=== PATIENT | female | born 1940 | race Caucasian/White ===

== ENCOUNTER 2017-10-31 21:05 | Inpatient (IN) | payer MEDICARE, OTHER ==
[~2017-10-31] VITALS: Ht 157.5 cm; Wt 59.9 kg
--- NOTE | 2017-10-31 21:13 | NUR ---
GUERDA MCLEOD at bedside for MSE.
--- NOTE | 2017-10-31 21:20 | NUR ---
Pt arrives to ER via wheelchair accompanied by daughter. Per daughter, pt took methotrexate and tramadol at 1700 and at 1730, pt had slurred speech. Pt is AAOX3, ambulatory. At this time, speech is clear. Able to speak in complete sentences. Responsive to verbal and tactile stimuli. Able to follow directions. VSS. No acute distress noted.
[2017-10-31 21:40] LABS: BASOPHILS # (AUTO) 0.1 K/uL (0.0-8.0); BASOPHILS % (AUTO) 0.6 % (0.0-2.0); EOSINOPHILS % (AUTO) 0.5 % (0.0-7.0); HEMATOCRIT 38.2 % (31.2-41.9); HEMOGLOBIN 12.8 g/dL (10.9-14.3); LYMPHOCYTES # (AUTO) 1.3 K/uL (20.0-40.0); LYMPHOCYTES % (AUTO) 15.7 % (20.5-51.5); MEAN CORPUSCULAR HEMOGLOBIN 36.2 uug (24.7-32.8); MEAN CORPUSCULAR HGB CONC 34 g/dL (32.3-35.6); MEAN CORPUSCULAR VOLUME 107.8 fL (75.5-95.3); MONOCYTES # (AUTO) 0.9 K/uL (2.0-10.0); MONOCYTES % (AUTO) 10.8 % (0.0-11.0); NEUTROPHILS # (AUTO) 5.9 K/uL (1.8-8.9); NEUTROPHILS % (AUTO) 72.4 % (38.5-71.5); PLATELET COUNT (AUTO) 264 K/uL (179-408); RED BLOOD CELL COUNT(AUTO) 3.54 MIL/uL (3.63-4.92); WHITE BLOOD COUNT (AUTO) 8.2 K/uL (3.8-11.8)
--- NOTE | 2017-10-31 21:41 | NUR ---
Pt went down to radiology dept for CT scan.
[2017-10-31] MEDS ORDERED: OLAN5TAB30 PO ×2 (21:56)
[2017-10-31] MEDS ORDERED: SERT100T12 PO (21:56)
[2017-10-31] MEDS ORDERED: DICLOFEN GEL TP (21:56)
[2017-10-31] MEDS ORDERED: PRED1TAB PO (21:56)
[2017-10-31] MEDS ORDERED: LEVO50TA8 PO (21:56)
[2017-10-31] MEDS ORDERED: METH2.5T PO (21:56)
[2017-10-31] MEDS ORDERED: KETO5DRO72 OP (21:56)
[2017-10-31] MEDS ORDERED: ATOR10TA PO (21:56)
[2017-10-31] MEDS ORDERED: RIVA1PAT3 TD (21:56)
[2017-10-31] MEDS ORDERED: LORA10TA7 PO (21:56)
[2017-10-31] MEDS ORDERED: TRAM50TA2 PO (21:56)
[2017-10-31] MEDS ORDERED: MELO-105 PO (21:56)
[2017-10-31] MEDS ORDERED: METH500T PO (21:56)
[2017-10-31] MEDS ORDERED: OLAN2.5T3 PO (21:56)
[2017-10-31 21:59] LABS: ALANINE AMINOTRANSFERASE 26 U/L (14-59); ALKALINE PHOSPHATASE 30 U/L (50-136); ASPARTATE AMINOTRANSFERASE 25 U/L (15-37); BILIRUBIN,DIRECT 0.2 mg/dL (0.0-0.2); BILIRUBIN,TOTAL 0.8 mg/dL (0.2-1.0); CARBON DIOXIDE 28 mmol/L (21-32); CHLORIDE 102 mmol/L (98-107); CREATININE 0.8 mg/dL (0.6-1.3); GLUCOSE 126 mg/dL (74-106); POTASSIUM 3.5 mmol/L (3.5-5.1); TOTAL PROTEIN, SERUM 6.2 g/dL (6.4-8.2); UREA NITROGEN, BLOOD 11 mg/dL (7-18)
[2017-10-31 22:06] LABS: THYROID STIMULATING HORMONE 1.567 mIU/mL (0.358-3.740)
--- NOTE | 2017-10-31 22:11 | NUR ---
Pt went to bathroom, collected urine sample and sent to lab.
[2017-10-31 22:28] LABS: *BILIRUBIN,URIN NEGATIVE (NEGATIVE); *BLOOD, URINE Trace-intact (NEGATIVE); *CLARITY,URINE SLIGHTLY CLOUDY (CLEAR); *KETONES,URINE NEGATIVE (NEGATIVE); *PROTEIN,URINE NEGATIVE (NEGATIVE); *UROBILINOGEN,URINE 0.2 E.U./dl (NORMAL); LEUKOCYTE ESTERASE ,URINE 1+ (NEGATIVE); NITRITE, URINE NEGATIVE (NEGATIVE); PH,URINE 6.5 (5.0-8.0); UGLUCOSE NEGATIVE (NEGATIVE)
--- NOTE | 2017-10-31 22:30 | NUR ---
IN FROM ER VIA GURNEY, 77 YEAR OLD FEMALE ADMITTED TO TELEMETRY WITH DX OF ALTERED MENTAL STATUS. AAOX2, NO SOB DENIES ANY CHEST PAIN. TELE MONITOR APPLIED SHOWS SINUS RHYTHM WITH HR OF 64. DAUGHTER AT BESIDE. IV SITE ON RAC, PATENT AND INTACT. ROUTINE ADMISSION DONE. PLAN OF CARE INITIATED. SAFETY MEASURES INITIATED. CALL KIDD WITHIN REACH. Addendum: 11/01/17 at 0132 by HERLINDA PAREDES RN PT ARRIVED AT UNIT AT 2330H
[2017-10-31 22:37] LABS: *COLOR,URINE YELLOW (YELLOW)
[2017-10-31 22:38] LABS: BACTERIA,URINE FEW /HPF (NONE SEEN); SQUAMOUS EPITHELIAL CELL,UR FEW /HPF (NONE SEEN)
--- NOTE | 2017-10-31 22:38 | NUR ---
Lab called to notify that urine color is yellow not green. aware.
[2017-10-31] MEDS ORDERED: ASPIRIN 325 MG TABLET PO ONE (23:00)
[2017-10-31] MEDS ORDERED: CEPHALEXIN MONOHYDRATE 500 MG CAPSULE PO ONE (23:00)
[2017-10-31] MEDS ORDERED: PANTOPRAZOLE SODIUM 40 MG TABLET.DR PO ONE ×2 (23:00→23:03)
[2017-10-31] MEDS ORDERED: CEPHALEXIN MONOHYDRATE 500 MG CAPSULE ONE (23:03)
[2017-10-31] MEDS ORDERED: ASPIRIN 325 MG TABLET ONE (23:03)
--- NOTE | 2017-10-31 23:19 | NUR ---
Pt. admitted to Telemetry , under care of Jermaine Krueger NP. Diagnosis: Altered Mental Status. Belongs List completed. Report given to Keke COWAN.
[2017-10-31] MEDS ORDERED: METHOCARBAMOL 500 MG TABLET PO PRN (23:45)
[2017-10-31] MEDS ORDERED: LORATADINE 10 MG TABLET PO PRN (23:45)
[2017-10-31] MEDS ORDERED: TRAMADOL HCL 50 MG TABLET PO PRN (23:45)
[2017-11-01] VITALS: BP 154/59
[2017-11-01] MEDS ORDERED: ONDANSETRON 4 MG/2 ML VIAL IV PRN
[2017-11-01] MEDS ORDERED: HYDROCODONE/APAP 5-325MG TABLET PO PRN
[2017-11-01] MEDS ORDERED: ZOLPIDEM 5 MG TABLET PO PRN
[2017-11-01] MEDS ORDERED: MAGNESIUM HYDROXIDE 30 ML LIQUID UDC PO PRN
[2017-11-01] MEDS ORDERED: ACETAMINOPHEN 325 MG TABLET PO PRN
[2017-11-01] MEDS: IV NS 1000 ML 1,000 ML IV PRN ×2 (00:21→14:33)
[2017-11-01 04:00] VITALS: BP 144/106
[2017-11-01 06:09] LABS: BASOPHILS % (AUTO) 0.4 % (0.0-2.0); EOSINOPHILS # (AUTO) 0.1 K/uL (0.0-0.7); EOSINOPHILS % (AUTO) 1.6 % (0.0-7.0); HEMATOCRIT 35.5 % (31.2-41.9); HEMOGLOBIN 11.9 g/dL (10.9-14.3); LYMPHOCYTES # (AUTO) 1.6 K/uL (20.0-40.0); LYMPHOCYTES % (AUTO) 22.8 % (20.5-51.5); MEAN CORPUSCULAR HEMOGLOBIN 36.8 uug (24.7-32.8); MEAN CORPUSCULAR HGB CONC 34 g/dL (32.3-35.6); MEAN CORPUSCULAR VOLUME 109.8 fL (75.5-95.3); MONOCYTES % (AUTO) 13.9 % (0.0-11.0); NEUTROPHILS # (AUTO) 4.4 K/uL (1.8-8.9); NEUTROPHILS % (AUTO) 61.3 % (38.5-71.5); PLATELET COUNT (AUTO) 232 K/uL (179-408); RED BLOOD CELL COUNT(AUTO) 3.23 MIL/uL (3.63-4.92); WHITE BLOOD COUNT (AUTO) 7.2 K/uL (3.8-11.8)
[2017-11-01] MEDS: LEVOTHYROXINE SODIUM 50 MCG TABLET PO SCH (06:32)
[2017-11-01 06:34] LABS: ALANINE AMINOTRANSFERASE 23 U/L (14-59); ALKALINE PHOSPHATASE 35 U/L (50-136); ASPARTATE AMINOTRANSFERASE 24 U/L (15-37); BILIRUBIN,TOTAL 0.7 mg/dL (0.2-1.0); CARBON DIOXIDE 30 mmol/L (21-32); CHLORIDE 104 mmol/L (98-107); CHOLESTEROL 147 mg/dL (<200); CREATININE 0.8 mg/dL (0.6-1.3); GLUCOSE 96 mg/dL (74-106); HDL CHOLESTEROL 75 mg/dL (40-60); PHOSPHOROUS 3.8 mg/dL (2.5-4.9); POTASSIUM 3.4 mmol/L (3.5-5.1); THYROID STIMULATING HORMONE 2.355 mIU/mL (0.358-3.740); TRIGLYCERIDES 51 MG/DL (30-150); UREA NITROGEN, BLOOD 10 mg/dL (7-18)
--- NOTE | 2017-11-01 06:37 | NUR ---
PT RESTING COMFORTABLY ON BED, NO SOB, DENIES ANY CHEST PAIN. IV SITE ON RAC PATENT AND INTACT. ALL NEEDS MET AND ATTENDED. SAFE ENVIRONMENT MAINTAINED AT ALL TIMES, CALL KIDD WITHIN REACH
--- NOTE | 2017-11-01 07:00 | NUR ---
Received patient in bed, awake, alert and oriented x1, in no acute distress. Denies chest pain or SOB. Speech is clear. IV site on RAC intact, IV fluids NS running at 75cc/hr. Will continue to monitor Addendum: 11/01/17 at 0839 by PATY PETERSON RN NSR on monitor, with HR of 60
[2017-11-01] MEDS: predniSONE 1 MG TABLET PO SCH (08:55)
[2017-11-01] MEDS: MELOXICAM 7.5 MG TABLET PO SCH (08:55)
[2017-11-01] MEDS: OLANZAPINE 2.5 MG TABLET PO SCH ×2 (08:55→17:08)
[2017-11-01] MEDS: SERTRALINE HCL 100 MG TABLET PO SCH (08:55)
[2017-11-01] MEDS ORDERED: RIVASTIGMINE 9.5 MG/ 24 HR 9.5 MG PATCH TD SCH (09:00)
[2017-11-01] MEDS ORDERED: OLANZAPINE 5 MG TABLET PO SCH ×2 (09:00→21:00)
[2017-11-01 11:37] VITALS: BP 145/48
[2017-11-01] MEDS ORDERED: POTASSIUM CHLORIDE 10 MEQ TAB.PRT.SR PO ONE (12:45)
[2017-11-01] MEDS ORDERED: POTASSIUM CHLORIDE 20 MEQ TAB.PRT.SR PO ONE (12:45)
[2017-11-01] MEDS ORDERED: POTASSIUM CHLORIDE 20 MEQ POWDER PACKET PO ONE (13:00)
[2017-11-01] MEDS: CEFTRIAXONE 1 G in IV DEXTROSE 5% 50 ML IV SCH (13:51)
[2017-11-01] MEDS ORDERED: TEMAZEPAM 7.5 MG CAPSULE PO PRN (14:00)
[2017-11-01 16:28] VITALS: BP 140/62
--- NOTE | 2017-11-01 18:18 | NUR ---
End of shift note: Patient is alert and oriented x1, confused, in no acute distress. No chest pain or SOB noted. Continues on IV fluids NS at 75cc/hr. No A/R noted from the IV atb given this afternoon. Continue to reorient patient as needed. remained afebrile. Telemetry was discontinued. No acute change of condition noted. All needs attended and met. Will continue to monitor
--- NOTE | 2017-11-01 19:56 | NUR ---
RECEIVED SHIFT REPORT FROM DAY SHIFT RN. PT IN BED, DENIES PAIN, C/P, SOB, N/V. BED IN LOW AND LOCKED POSITION WITH BILATERAL UPPER SIDERAILS UP. CALL LIGHT WITHIN REACH. IVF INFUSING AT 75 CC/HR VIA 20 G L AC. WILL CONTINUE TO MONITOR.
[2017-11-01 20:00] VITALS: BP 145/72
[2017-11-01] MEDS ORDERED: ATORVASTATIN 10 MG TABLET PO SCH (21:00)
--- NOTE | 2017-11-01 22:23 | NUR ---
PT IS CONFUSED. REORIENTATION PROVIDED AND ASSISTED TO BED. PT DENIES PAIN, C/P, SOB, N/V. WILL MONITOR PT FOR INSOMNIA AND CONTINUE REORIENTATION.
--- NOTE | 2017-11-01 23:18 | NUR ---
PT WANDERING AROUND UNIT FLOOR. APPEARS TO BE A BIT UNSTEADY ON HER FEET. PT REDIRECTED TO ROOM. C/O GENERALIZED PAIN, REQUESTS PAIN MEDICINE. PT UNABLE TO FALL ASLEEP, OFFERED SLEEPING MEDICINE. PT ACCEPTED OFFER FOR SLEEPING MEDICINE, ADMINISTERED. PT RESTING IN BED AT THIS TIME. REQUIRES FREQUENT VISUAL MONITORING DUE TO WANDERING AND UNSTEADY GAIT. WILL CONTINUE TO MONITOR.
--- NOTE | 2017-11-02 02:49 | NUR ---
PT IS SLEEPING COMFORTABLY IN BED POST TEMAZEPAM ADMIN. PT IS ASLEEP, BUT EASILY AROUSABLE. WILL CONTINUE TO MONITOR AND PROVIDE SAFETY PRECAUTIONS.
[2017-11-02 04:00] VITALS: BP 146/73
[2017-11-02] MEDS: LEVOTHYROXINE SODIUM 50 MCG TABLET PO SCH (05:37)
[2017-11-02 06:47] LABS: CARBON DIOXIDE 28 mmol/L (21-32); CHLORIDE 106 mmol/L (98-107); CREATININE 0.7 mg/dL (0.6-1.3); GLUCOSE 81 mg/dL (74-106); POTASSIUM 4.2 mmol/L (3.5-5.1); UREA NITROGEN, BLOOD 10 mg/dL (7-18)
--- NOTE | 2017-11-02 07:45 | NUR ---
AWAKE FORGETFUL NO PAIN OR SOB ON FALL PRECAUTION BED ALARM ON AND CALL LIGHT IN REACH IVF INFUSION WELL LAC
[2017-11-02] MEDS: SERTRALINE HCL 100 MG TABLET PO SCH (08:26)
[2017-11-02] MEDS: predniSONE 1 MG TABLET PO SCH (08:26)
[2017-11-02] MEDS: MELOXICAM 7.5 MG TABLET PO SCH (08:26)
[2017-11-02] MEDS: OLANZAPINE 2.5 MG TABLET PO SCH ×2 (08:27→16:24)
--- NOTE | 2017-11-02 10:00 | NUR ---
OOB AMB WITH PT DOING WELL FAMILY AT BEDSIDE PO FLD RAYA MOD AMT NO PAIN OR SOB
[2017-11-02] MEDS ORDERED: RIVASTIGMINE 4.6 MG PATCH TD SCH (10:45)
[2017-11-02 11:40] VITALS: BP 104/52
[2017-11-02] MEDS: CEFTRIAXONE 1 G in IV DEXTROSE 5% 50 ML IV SCH (12:59)
--- NOTE | 2017-11-02 14:00 | NUR ---
Jaky TOTH RAILCAR BRAKE OPERATOR SE PATIENT AND ORDER OK TO DISCHARGE TODAY TO ARU WITH ORDER FAMILY DAUGHTER WAS INFORM AND REHAB UNIT LINE PREP COOK CAME TO EVAL STATE OK TO ACCEPT PATIENT ,WAITING FOR BED AVAILABLE THIS EVENING
[2017-11-02 15:30] VITALS: BP 98/49
--- NOTE | 2017-11-02 17:00 | NUR ---
REPORT GIVEN TO NURSE MEIER VIA TEL PATIENT EAT DINNER 60% AT THIS TIME AND DAUGHTER WAS CALL TO INFORM OF PT WILL GO TO ROOM 108 AT [facility]
--- NOTE | 2017-11-02 17:30 | NUR ---
D/C TO ARU WITH HER BELONGING CONDITION STABLE NO PAIN
[2017-11-02] MEDS ORDERED: CEPH-570 PO (18:23)
[2017-11-03] MEDS ORDERED: RIVASTIGMINE 9.5 MG/ 24 HR 9.5 MG PATCH TD SCH (09:00)
== END 2017-11-02 17:30 | DRG 689 ==
LOC: ER 21:07 → TELE 23:20 → MED 11-01 12:40
PROVIDERS: ADMIT Nurse Practitioner Acute Care; ATTEND Nurse Practitioner Acute Care
DX: N39.0 Urinary tract infection, site not specified (principal); G92 Toxic encephalopathy; E44.0 Moderate protein-calorie malnutrition; B96.89 Other specified bacterial agents as the cause of diseases classified elsewhere; Z68.24 Body mass index [BMI] 24.0-24.9, adult; G30.9 Alzheimer's disease, unspecified; F02.80 Dementia in other diseases classified elsewhere, unspecified severity, without behavioral disturbance, psychotic disturbance, mood disturbance, and anxiety; I49.3 Ventricular premature depolarization; E87.6 Hypokalemia; E78.5 Hyperlipidemia, unspecified; M06.9 Rheumatoid arthritis, unspecified; G89.4 Chronic pain syndrome; Z66 Do not resuscitate; M85.80 Other specified disorders of bone density and structure, unspecified site; Z79.899 Other long term (current) drug therapy; I65.29 Occlusion and stenosis of unspecified carotid artery; E55.9 Vitamin D deficiency, unspecified; E03.9 Hypothyroidism, unspecified; M19.90 Unspecified osteoarthritis, unspecified site; E16.2 Hypoglycemia, unspecified
CPT/HCPCS: 36415; 70030-TC; 70450; 71045; 83605; 83735; 84100; 84443; 85025; 85730; 87040; 87086; 93005; 93307; 93880; 97116; 97530; A4663; J0696; J7030; J7060; J7512

== ENCOUNTER 2017-11-02 17:44 | Inpatient (IN) | payer MEDICARE, OTHER ==
[~2017-11-02] VITALS: Ht 157.5 cm; Wt 59.9 kg
[~2017-11-02 17:44] MED LIST: ATOR10TA PO; DICLOFEN GEL TP; KETO5DRO72 OP; LEVO50TA8 PO; LORA10TA7 PO; MELO-105 PO; METH2.5T PO; METH500T PO; OLAN2.5T3 PO; OLAN5TAB30 PO; PRED1TAB PO; RIVA1PAT3 TD; SERT100T12 PO; TRAM50TA2 PO
[2017-11-02 17:50] VITALS: BP 134/55
[2017-11-02] MEDS ORDERED: Z GUARD REMEDY PASTE 57 GM TUBE TOP PRN (18:15)
[2017-11-02] MEDS ORDERED: CEPH-570 PO (18:23)
--- NOTE | 2017-11-02 18:29 | NUR ---
NURSE NOTES: Admitted a 77 year old female patient from medical surgical floor in [facility]. Transported by staff via wheelchair. No SOB or distress noted. Patient was oriented to the unit, room and use of call light as well as her telephone. Called Dr. Mckinley and informed with new orders, noted and carried out. Admission questions were provided by the patient, hospital paperwork provided by Med Surg as well as the reporting RN. Medication reconciliation reviewed. called Dr. Feng Manrique and informed, awaiting for MD to reconcile the medications. Safety precautions initiated. Call light and telephone within reach. Will continue to monitor. Will endorse accordingly to incoming shift for continuity of care.
--- NOTE | 2017-11-02 18:48 | NUR ---
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
[2017-11-02 20:00] VITALS: BP_SYST 122; BP_SYST 159; BP_DIAS 72
--- NOTE | 2017-11-02 20:00 | NUR ---
Received patient laying comfortably in bed. No acute distress noted. A/O x 1. On room air. Skin assessment done. Skin intact. Safety initiated. Call light within reach. Will continue to monitor.
[2017-11-02] MEDS ORDERED: METHOCARBAMOL 500 MG TABLET PO PRN (23:45)
[2017-11-02] MEDS ORDERED: TRAMADOL HCL 50 MG TABLET PO PRN (23:45)
--- NOTE | 2017-11-03 05:35 | NUR ---
Patient slept t/o shift. No acute distress noted. Remains A/O x 1. Vital signs stable. Room kept clutter free. Bed in low and locked position. All meds given as ordered. All needs met. Safety and comfort measures maintained t/o shift.
[2017-11-03] MEDS: MELOXICAM 7.5 MG TABLET PO SCH (07:49)
[2017-11-03] MEDS: predniSONE 1 MG TABLET PO SCH (07:49)
[2017-11-03] MEDS: OLANZAPINE 2.5 MG TABLET PO SCH ×2 (07:50→18:08)
[2017-11-03] MEDS: SERTRALINE HCL 100 MG TABLET PO SCH (07:50)
[2017-11-03] MEDS ORDERED: LEVOTHYROXINE SODIUM 50 MCG TABLET PO SCH (09:00)
[2017-11-03] MEDS ORDERED: CEPHALEXIN MONOHYDRATE 500 MG CAPSULE PO SCH (09:00)
[2017-11-03] MEDS ORDERED: RIVASTIGMINE 9.5 MG/ 24 HR 9.5 MG PATCH TD SCH ×2 (09:00)
[2017-11-03] MEDS ORDERED: LORATADINE 10 MG TABLET PO SCH ×2 (09:00)
[2017-11-03] MEDS ORDERED: METHOTREXATE SODIUM 2.5 MG TABLET PO SCH (09:00)
[2017-11-03] MEDS ORDERED: OLANZAPINE 5 MG TABLET PO SCH ×2 (09:00→21:00)
[2017-11-03] MEDS: RIVASTIGMINE 4.6 MG PATCH TD SCH (14:17)
[2017-11-03 15:28] VITALS: BP 164/72
--- NOTE | 2017-11-03 19:40 | NUR ---
Received pt in bed, appearing to be asleep but easily arousable to verbal stimuli and light touch. No acute distress noted. Verbally responsive and able to make needs known. Denies pain or discomfort at this time. All safety measures and fall precautions maintained. Call light and all personal belongings within reach. Will continue to monitor.
[2017-11-03 20:15] VITALS: BP 116/56
[2017-11-03] MEDS: ATORVASTATIN 10 MG TABLET PO SCH (21:15)
[2017-11-03] MEDS: CEPHALEXIN MONOHYDRATE 500 MG CAPSULE PO SCH (21:15)
[2017-11-04] MEDS: LEVOTHYROXINE SODIUM 50 MCG TABLET PO SCH (06:34)
[2017-11-04] MEDS: CEPHALEXIN MONOHYDRATE 500 MG CAPSULE PO SCH ×2 (09:20→20:37)
[2017-11-04] MEDS: SERTRALINE HCL 100 MG TABLET PO SCH (09:20)
[2017-11-04] MEDS: OLANZAPINE 2.5 MG TABLET PO SCH ×2 (09:20→16:26)
[2017-11-04] MEDS: MELOXICAM 7.5 MG TABLET PO SCH (09:20)
[2017-11-04] MEDS: predniSONE 1 MG TABLET PO SCH (09:20)
[2017-11-04 09:27] VITALS: BP 128/72
[2017-11-04] MEDS: RIVASTIGMINE 4.6 MG PATCH TD SCH (09:29)
--- NOTE | 2017-11-04 13:35 | NUR ---
INTERDISCIPLINARY TEAM CONFERENCE
[2017-11-04 16:03] VITALS: BP 119/72
--- NOTE | 2017-11-04 17:41 | NUR ---
pt continues to be stable throughout the day. no behavioral changes but pt continues to show confusion. will endorse to casino shift manager nurse.
--- NOTE | 2017-11-04 20:05 | NUR ---
Patient received in bed, AAO x2, forgetful, able to make needs known.Her private caregiver was at the bedside. No sign of distress or SOB was noted. On room air with O2 sat 94%. Pain assessed, no sign of pain. Safety measures maintained. Bed alarm and brake on, side rails up x2. Call light and personal belongings within reach. Continue to monitor.
[2017-11-04 20:07] VITALS: BP 101/50
[2017-11-04] MEDS: CETIRIZINE HCL 10 MG TABLET PO SCH (20:37)
[2017-11-04] MEDS: ATORVASTATIN 10 MG TABLET PO SCH (20:37)
[2017-11-05 05:00] VITALS: BP 137/68
--- NOTE | 2017-11-05 05:23 | NUR ---
End of the shift note Patient remained stable throughout the shift. Had good sleep throughout the night. No acute changes noted. Kept patient clean, dry and comfortable. Assessed for pain, no complain of pain. No sign of acute distress or SOB was noted. Medication was given as ordered. Monitored vital signs. Safety precautions observed. Hourly rounding done, call light and telephone within reach at all times, bilateral half side rails up and bed brake son for safety. Will endorse accordingly to incoming shift for continuity of care.
[2017-11-05] MEDS: LEVOTHYROXINE SODIUM 50 MCG TABLET PO SCH (06:22)
[2017-11-05] MEDS: OLANZAPINE 2.5 MG TABLET PO SCH ×2 (07:56→17:26)
[2017-11-05] MEDS: predniSONE 1 MG TABLET PO SCH (07:56)
[2017-11-05] MEDS: MELOXICAM 7.5 MG TABLET PO SCH (07:56)
[2017-11-05] MEDS: SERTRALINE HCL 100 MG TABLET PO SCH (07:56)
[2017-11-05 08:00] VITALS: BP 113/62
[2017-11-05] MEDS: RIVASTIGMINE 4.6 MG PATCH TD SCH (08:00)
[2017-11-05] MEDS: CEPHALEXIN MONOHYDRATE 500 MG CAPSULE PO SCH ×2 (08:00→21:05)
[2017-11-05] MEDS ORDERED: METHOTREXATE SODIUM 2.5 MG TABLET PO SCH (09:00)
--- NOTE | 2017-11-05 09:48 | NUR ---
Received patient up with occupational therapy, tolerating well. Able to make needs know. Alert x1-2. With minimal tolerable pain over lower back, refuses pain medications at this time.
[2017-11-05 16:03] VITALS: BP 113/56
--- NOTE | 2017-11-05 18:52 | NUR ---
Was stable throughout the shift. Compliant with medications and treatment. No complaints of pain.
[2017-11-05 19:30] VITALS: BP 115/61
[2017-11-05] MEDS: CETIRIZINE HCL 10 MG TABLET PO SCH (21:05)
[2017-11-05] MEDS: ATORVASTATIN 10 MG TABLET PO SCH (21:05)
[2017-11-06 04:00] VITALS: BP 134/63
--- NOTE | 2017-11-06 05:13 | NUR ---
Pt seen on rounding. AAO x2. No acute distress noted. No c/o pain or discomfort. At 0430, pt's HR is consistent to be around 54, asymptomatic, other VS WNL. Monitoring closely. Pt currently sleeping at this time. All meds given as ordered last night. All needs attended to promptly. Safety measures maintained. Call light and personal belongings within reach. Will continue to monitor.
[2017-11-06] MEDS: LEVOTHYROXINE SODIUM 50 MCG TABLET PO SCH (06:26)
[2017-11-06 08:58] VITALS: BP 115/55
[2017-11-06] MEDS: OLANZAPINE 2.5 MG TABLET PO SCH ×2 (08:59→17:18)
[2017-11-06] MEDS: MELOXICAM 7.5 MG TABLET PO SCH (08:59)
[2017-11-06] MEDS: CEPHALEXIN MONOHYDRATE 500 MG CAPSULE PO SCH ×2 (08:59→20:46)
[2017-11-06] MEDS: predniSONE 1 MG TABLET PO SCH (08:59)
[2017-11-06] MEDS: SERTRALINE HCL 100 MG TABLET PO SCH (08:59)
[2017-11-06] MEDS: RIVASTIGMINE 4.6 MG PATCH TD SCH (09:00)
[2017-11-06 15:50] VITALS: BP 124/57
--- NOTE | 2017-11-06 17:48 | NUR ---
Daily Nursing Note: Patient was not in distress all throughout the shift, vital signs taken and recorded accordingly, within normal limits and denies any form of discomfort and pain. Patient continues to show compliance with her overall care. No other complaints at this time. Addendum: 11/06/17 at 1817 by MANNY RUIZ JR., RN RN Dr. Miguel Angel Quintanilla made rounds to the unit and was made aware of patients bradycardia, no orders at this time.
[2017-11-06 19:50] VITALS: BP 120/45
[2017-11-06] MEDS: CETIRIZINE HCL 10 MG TABLET PO SCH (20:46)
[2017-11-06] MEDS: ATORVASTATIN 10 MG TABLET PO SCH (20:46)
--- NOTE | 2017-11-06 21:50 | NUR ---
Received pt resting in bed. AAO x2. No acute distress noted. No c/o pain or discomfort. Pt took meds as ordered. Episode of confusion noted, pt stated that she wants to go to the bathroom but forgot where it is and that she does not know where she is. Reoriented pt to the unit and equipment. Safety measures maintained. Call light and personal belongings within reach. Will continue to monitor.
[2017-11-07 04:30] VITALS: BP 104/42
[2017-11-07] MEDS: LEVOTHYROXINE SODIUM 50 MCG TABLET PO SCH (06:22)
--- NOTE | 2017-11-07 08:00 | NUR ---
Pt is in no acute distress. Pt ambulates with good balance. Pt very forgetful and wonders around hallway at times. Pt's bed in front of nursing station to be monitored. Call light is within reach.
[2017-11-07] MEDS: SERTRALINE HCL 100 MG TABLET PO SCH (08:35)
[2017-11-07] MEDS: CEPHALEXIN MONOHYDRATE 500 MG CAPSULE PO SCH (08:35)
[2017-11-07] MEDS: predniSONE 1 MG TABLET PO SCH (08:36)
[2017-11-07] MEDS: OLANZAPINE 2.5 MG TABLET PO SCH ×2 (08:36→17:20)
[2017-11-07] MEDS: MELOXICAM 7.5 MG TABLET PO SCH (08:36)
[2017-11-07] MEDS: RIVASTIGMINE 4.6 MG PATCH TD SCH (08:36)
--- NOTE | 2017-11-07 18:17 | NUR ---
Uneventful shift. Pt tolerated physical therapy. Pt was continent of bowel and bladder. Pt ambulates to bathroom independently. Call light is within reach.
[2017-11-07 19:45] VITALS: BP 110/62
--- NOTE | 2017-11-07 20:00 | NUR ---
Patient received in bed, AAO x2, forgetful, able to make needs known. No sign of distress or SOB was noted. On room air with O2 sat 95%. Pain assessed, no sign of pain. Safety measures maintained. Bed alarm and brake on, side rails up x2. Call light and personal belongings within reach. Continue to monitor.
[2017-11-07 20:08] VITALS: BP 146/65
[2017-11-07] MEDS: CETIRIZINE HCL 10 MG TABLET PO SCH (20:12)
[2017-11-07] MEDS: ATORVASTATIN 10 MG TABLET PO SCH (20:12)
[2017-11-08 03:17] VITALS: BP 135/80
[2017-11-08] MEDS: LEVOTHYROXINE SODIUM 50 MCG TABLET PO SCH (06:03)
[2017-11-08] MEDS: MELOXICAM 7.5 MG TABLET PO SCH (08:25)
[2017-11-08] MEDS: SERTRALINE HCL 100 MG TABLET PO SCH (08:26)
[2017-11-08] MEDS: predniSONE 1 MG TABLET PO SCH (08:26)
[2017-11-08] MEDS: OLANZAPINE 2.5 MG TABLET PO SCH ×2 (08:26→16:20)
[2017-11-08] MEDS: RIVASTIGMINE 4.6 MG PATCH TD SCH (08:27)
[2017-11-08 15:40] VITALS: BP 133/51
--- NOTE | 2017-11-08 17:20 | NUR ---
Pt tolerated physical therapy. Pt was continent of bowel and bladder. Pt ambulates to bathroom independently. Call light is within reach.
--- NOTE | 2017-11-08 20:05 | NUR ---
Patient received in bed, AAO x2, forgetful, able to make needs known. No sign of distress or SOB was noted. On room air with O2 sat 93%. Pain assessed, no sign of pain. Safety measures maintained. Bed alarm and brake on, side rails up x2. Call light and personal belongings within reach. Continue to monitor.
[2017-11-08 20:15] VITALS: BP_SYST 115; BP_SYST 141; BP_DIAS 41; BP_DIAS 56
[2017-11-08] MEDS: ATORVASTATIN 10 MG TABLET PO SCH (20:19)
[2017-11-08] MEDS: CETIRIZINE HCL 10 MG TABLET PO SCH (20:20)
[2017-11-09 05:20] VITALS: BP 140/74
[2017-11-09] MEDS: LEVOTHYROXINE SODIUM 50 MCG TABLET PO SCH (06:08)
[2017-11-09 08:00] VITALS: BP 109/82
[2017-11-09] MEDS: predniSONE 1 MG TABLET PO SCH (08:54)
[2017-11-09] MEDS: SERTRALINE HCL 100 MG TABLET PO SCH (08:54)
[2017-11-09] MEDS: MELOXICAM 7.5 MG TABLET PO SCH (08:54)
[2017-11-09] MEDS: RIVASTIGMINE 4.6 MG PATCH TD SCH (08:55)
[2017-11-09] MEDS: OLANZAPINE 2.5 MG TABLET PO SCH (08:55)
--- NOTE | 2017-11-09 09:00 | NUR ---
Received patient, awake, alert x2. With periods of forgetfulness and confusion. Not in any form of distress. Denies any pain. For possible discharge today.
--- NOTE | 2017-11-09 13:30 | NUR ---
Discharge order obtained from Dr. Miramontes. Discharge to home with home health. Discharge in stable condition. Not in any form of distress. Denies any pain. Routine discharge care done. Instructed to take medications as prescribed. Instructed to follow up with PCP. Discharge to home accompanied by daughter, Dana ambulatory with assistive device.
== END 2017-11-09 13:45 | disposition home health service (06) | DRG 92 ==
PROVIDERS: ADMIT Physical Medicine & Rehabilitation Pain Medicine; ATTEND Physical Medicine & Rehabilitation Pain Medicine
DX: G92 Toxic encephalopathy (principal); N39.0 Urinary tract infection, site not specified; E44.0 Moderate protein-calorie malnutrition; F32.3 Major depressive disorder, single episode, severe with psychotic features; E03.9 Hypothyroidism, unspecified; E78.5 Hyperlipidemia, unspecified; G30.9 Alzheimer's disease, unspecified; F02.80 Dementia in other diseases classified elsewhere, unspecified severity, without behavioral disturbance, psychotic disturbance, mood disturbance, and anxiety; G89.4 Chronic pain syndrome; M06.9 Rheumatoid arthritis, unspecified; M19.90 Unspecified osteoarthritis, unspecified site; M81.0 Age-related osteoporosis without current pathological fracture; R26.81 Unsteadiness on feet; R53.81 Other malaise; I49.3 Ventricular premature depolarization; I51.7 Cardiomegaly; I25.10 Atherosclerotic heart disease of native coronary artery without angina pectoris; Z88.8 Allergy status to other drugs, medicaments and biological substances; R53.1 Weakness; M85.80 Other specified disorders of bone density and structure, unspecified site
CPT/HCPCS: 70030-TC; 92507; 92523; 97110; 97112; 97116; 97530; 97535; A4663; J7512; J8610